=== PATIENT | female | born 1980 | race Asian ===

== ENCOUNTER 2016-12-15 13:52 | Emergency (ER) | payer OTHER ==
[2016-12-15 14:01] VITALS: BP 108/72; PULSE 67; TEMP 98.3; BMI 21.7
[2016-12-15] MEDS ORDERED: HIV POST EXPOSURE PROPHYLAXIS KIT NR ONE (14:24)
[2016-12-15] MEDS ORDERED: HIV POST EXPOSURE PROPHYLAXIS KIT PO ONE (14:25)
--- NOTE | 2016-12-15 14:44 | PDOC ---
Post Exposure HPI - General History Source: Patient Exam Limitations: No Limitations - History of Present Illness Initial Comments: 12/15/16 14:45 The patient is a 36 year old female with no significant past medical history who presents to the Emergency Department after a right upper arm needle stick. 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 She presents to receive anti-viral medications, and to rule out Hepatitis C, HIV, and/or any other diseases. She reports an IUD is in place, and denies any possibility of being . She denies any other complaints. <Stella Dawn - Last Filed: 12/15/16 14:45> <Zane Gomez - Last Filed: 12/15/16 15:17> - General Chief Complaint: Blood/Body Fluid Exposure SJR Stated Complaint: RT UPPER ARM NEEDLE STICK Time Seen by Provider: 12/15/16 14:08 Past History <Stella Dawn - Last Filed: 12/15/16 14:45> - Social History Smoking Status: Never smoked <Zane Gomez - Last Filed: 12/15/16 15:17> - Past Medical History Allergies/Adverse Reactions: Allergies Sulfa (Sulfonamide Antibiotics) Allergy (Verified 12/15/16 13:55) Home Medications: Ambulatory Orders Raltegravir [Isentress -] 400 mg PO BID #46 tab 12/15/16 Review of Systems - Review of Systems Able to Perform ROS?: Yes Comments:: 12/15/16 14:46 CONSTITUTIONAL: Absent: fever, no chills, no fatigue EYES: Absent: visual changes ENT: Absent: ear pain, no sore throat CARDIOVASCULAR: Absent: chest pain, no palpitations RESPIRATORY: Absent: cough, no SOB GI: Absent: abdominal pain, no nausea, no vomiting, no constipation, no diarrhea GENITOURINARY: Absent: dysuria, no frequency, no hematuria MUSCULOSKELETAL: Absent: back pain, no arthralgia, no myalgia SKIN: Present: right upper arm needle stick Absent: rash NEURO: Absent: headache <Stella Dawn - Last Filed: 12/15/16 14:45> *Physical Exam - Vital Signs Last Vital Signs Temp Pulse Resp BP Pulse Ox 98.3 F 67 18 108/72 100 12/15/16 13:52 12/15/16 13:52 12/15/16 13:52 12/15/16 13:52 12/15/16 13:52 - Physical Exam Comments: 12/15/16 14:46 GENERAL: Well-appearing, well-nourished. No apparent distress. HEENT: Normocephalic, atraumatic. PERRL, EOM intact. CARDIOVASCULAR: Normal S1, S2. Regular rate and rhythm. PULMONARY: Clear to auscultation bilaterally. ABDOMEN: Soft, non-distended, non-tender. EXTREMITIES: Normal ROM in all four extremities. No gross deformities. SKIN: 1 mm puncture wound in the right upper arm that is superficial, no surrounding erythema, edema or drainage. Warm, dry. No rash NEUROLOGICAL: No focal neurological deficits. 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 Superficial penetration but the skin was broken. She had been tested for HIV many years ago, and was negative. She is immunized against hepatitis B. She has had no hepatitis in the past, and has no serious medical problems at present. She has an IUD and is not . The patient was hospitalized after an hour procedure is being tested for HIV and hepatitis. She has evidently stated that she was tested recently for HIV and is negative, she has been in a monogamous relationship with another woman long-term and has had no recent new sexual contacts. The patient will undergo post exposure prophylaxis and then decide whether or not to continue based on the results of the patient. She will also contact Dr. Su, infectious disease physician, for further counseling and recommendation. She understands her options and will follow up on her lab results. <Zane Gomez - Last Filed: 12/15/16 15:17> *DC/Admit/Observation/Transfer - Attestations Scribe Attestion: 12/15/16 14:46 Documentation prepared by Stella Dawn, acting as medical office secretary for Zane Mckee MD. <Stella Dawn - Last Filed: 12/15/16 14:45> - Discharge Dispostion Admit: No <Zane Gomez - Last Filed: 12/15/16 15:17> Diagnosis at time of Disposition: Needle stick injury Qualifiers: Encounter type: initial encounter Qualified Code(s): W27.3XXA - Contact with needle (sewing), initial encounter - Discharge Dispostion Condition at time of disposition: Stable - Prescriptions Prescriptions: Raltegravir [Isentress -] 400 mg PO BID #46 tab - Referrals Referrals: Jeffrey Su MD [Staff Physician] - - Patient Instructions Printed Discharge Instructions: How to Handle Body Fluid Exposure -- Healthcare Worker - Post Discharge Activity Work/School Note: Back to Work
[2016-12-15 14:51] LABS: EOSINOPHIL 3.7 % (0-4.5); MCHC 33.3 g/dl (32.0-36.0); MEAN CELL VOLUME 90.1 fl (80-96); MEAN PLT VOLUME 8.7 fl (7.5-11.1); NEUTROPHILS 53.9 % (42.8-82.8); PLATELET COUNT 253 K/MM3 (134-434); RDW 12.4 % (11.6-15.6); WHITE BLOOD COUNT 6.2 K/mm3 (4.0-10.8)
[2016-12-15 15:19] LABS: ALBUMIN 4.9 g/dl (3.5-5.0); ALK PHOS 39 U/L (32-92); ANION GAP 8 (8-16); BILIRUBIN,TOTAL 0.6 mg/dl (0.2-1.0); CALCIUM 9.7 mg/dl (8.4-10.2); CO2 28 mmol/L (22-28); COCKROFT - GAULT 108.4345; CREATININE 0.7 mg/dl (0.6-1.3); GLUCOSE,RANDOM 88 mg/dl (74-106); SGOT/AST 20 U/L (10-42); SGPT/ALT 21 U/L (10-40); TOT PROT 7.3 g/dl (6.4-8.3)
[2016-12-15 18:57] LABS: HIV 1 & 2 AB NEGATIVE; HIV 1 AGp24 NEGATIVE
== END 2016-12-15 15:05 | disposition home or self-care (01) ==
LOC: FER 13:52
DX: Z77.21 Contact with and (suspected) exposure to potentially hazardous body fluids (principal); W46.1XXA Contact with contaminated hypodermic needle, initial encounter; Y93.89 Activity, other specified; Y92.234 Operating room of hospital as the place of occurrence of the external cause; Y99.0 Civilian activity done for income or pay
CPT/HCPCS: 36415; 80053; 84460; 85025; 87340; 87389; 99282-25

== ENCOUNTER 2020-08-25 13:34 | Emergency (ER) | payer OTHER ==
[2020-08-25 13:52] VITALS: BP 120/80; PULSE 87; TEMP 99.2; BMI 21.7
[2020-08-25 14:27] LABS: BASO % 4.3 % (0-2.0); EOS % 3.6 % (0-4.5); HEMATOCRIT 40.5 % (32.4-45.2); HEMOGLOBIN 13.3 GM/dl (10.7-15.3); LYMPH % 34.2 % (8-40); MCH 30.2 pg (25.7-33.7); MCHC 32.8 g/dl (32.0-36.0); MEAN PLT VOLUME 8.8 fl (7.5-11.1); MONO % 6.8 % (3.8-10.2); NEUT % 51.1 % (42.8-82.8); PLATELET COUNT 249 K/MM3 (134-434); RDW 11.5 % (11.6-15.6); WHITE BLOOD COUNT 4.2 K/mm3 (4.0-10.8)
[2020-08-25 14:37] LABS: ALBUMIN 4.7 g/dl (3.4-5.0); BILIRUBIN,TOTAL 0.8 mg/dl (0.2-1); CALCIUM 8.9 mg/dl (8.5-10); CREATININE 0.8 mg/dl (0.55-1.3); TOT PROT 6.7 g/dl (6.4-8.2)
[2020-08-25 18:39] LABS: HIV INTERPRETATION NEGATIVE (NEGATIVE)
== END 2020-08-25 14:45 | disposition home or self-care (01) ==
LOC: FER 13:34
DX: Z77.21 Contact with and (suspected) exposure to potentially hazardous body fluids (principal)
CPT/HCPCS: 36415; 80053; 85025; 87389; 99283-25